=== PATIENT | male | born 1985 ===

== ENCOUNTER 2020-02-07 21:20 | Inpatient (IN) | payer OTHER ==
[2020-02-07 23:27] LABS: Anisocytosis Slight; Basophils # (A) 0.1 k/uL (0-0.2); Basophils % (A) 0 %; Eosinophils # (A) 0.2 k/uL (0-0.7); Eosinophils % (A) 1 %; HGB 11.7 gm/dL (13.0-17.5); Hypochromasia Slight; Lymphocytes # (A) 1.1 k/uL (1.0-4.8); Lymphocytes % (A) 7 %; MCH 37.7 pg (25.0-35.0); MCHC 33.5 g/dL (31.0-37.0); MCV 112.8 fL (80.0-100.0); Macrocytosis Marked; Mean Platelet Volume 8.8; Monocytes # (A) 0.7 k/uL (0-1.0); Monocytes % (A) 5 %; Neutrophils # (A) 14.3 k/uL (1.3-7.7); Neutrophils % (A) 86 %; Platelet Count 160 k/uL (150-450); RDW 17.8 % (11.5-15.5); WBC 16.5 k/uL (3.8-10.6)
[2020-02-07 23:38] LABS: ALT 112 U/L (4-49); AST 168 U/L (17-59); African American GFR (CKD) >90 (>60 ml/min/1.73 sqM); Alkaline Phosphatase 160 U/L (38-126); Amylase 84 U/L (30-110); Anion Gap 8 mmol/L; Blood Urea Nitrogen 16 mg/dL (9-20); Calcium 8.1 mg/dL (8.4-10.2); Carbon Dioxide 17 mmol/L (22-30); Chloride 104 mmol/L (98-107); Glucose 111 mg/dL (74-99); Magnesium 1.9 mg/dL (1.6-2.3); Non-African American GFR(CKD) >90 (>60 ml/min/1.73 sqM); Potassium 4.6 mmol/L (3.5-5.1); Sodium 129 mmol/L (137-145)
--- NOTE | 2020-02-08 00:03 | XR ---
EXAMINATION TYPE: XR chest 2V DATE OF EXAM: 02/07/2020 COMPARISON: NONE HISTORY: Swollen ankles TECHNIQUE: 2 views FINDINGS: Heart and mediastinum are normal. Lungs are clear of infiltrate. There is poor inspiration. Costophrenic angles are clear. There is no heart failure. Bony thorax is intact. IMPRESSION: Poor inspiration. No acute lung disease. No heart failure.
[2020-02-08 00:04] LABS: Total Bilirubin 27.3 mg/dL (0.2-1.3)
[2020-02-08 00:14] LABS: Target Cells Present
[2020-02-08 00:31] LABS: Appearance,Urine Clear (Clear); Color,Urine Dark Orange; Specific Gravity,Urine 1.005 (1.001-1.035)
[2020-02-08 00:32] LABS: Bilirubin,Urine 4+ (Negative); Blood,Urine Small (Negative); Glucose,Urine (UA) Negative (Negative); Ketones,Urine Negative (Negative); Protein,Urine Negative (Negative)
[2020-02-08 00:33] LABS: Leukocyte Esterase,Urine Negative (Negative); Nitrite,Urine Negative (Negative)
--- NOTE | 2020-02-08 00:35 | ED ---
General Adult HPI - General Chief complaint: Recheck/Abnormal Lab/Rx Stated complaint: Skin Issue Time Seen by Provider: 02/07/20 22:26 Source: patient, RN notes reviewed Mode of arrival: ambulatory Limitations: no limitations - History of Present Illness Initial comments: 34-year-old male with a past medical history of chronic alcoholism, alcoholic hepatitis presents to the emergency department for a chief complaint of jaundice. Patient has had jaundice for a few weeks now. Patient was apparently previously seen at [facility] for acute alcoholic hepatitis. He was released about one week ago. States she has not noticed any difference in this color change however has become more edematous in his legs. Unfortunately I was not able to receive reports from [facility] at this time despite several attempts. Patient went into [place] yesterday and has not had alcohol for 20 days.Patient has no other complaints at this time including shortness of breath, chest pain, abdominal pain, nausea or vomiting, headache, or visual changes. - Related Data Allergies Allergy/AdvReac Type Severity Reaction Status Date / Time No Known Allergies Allergy Verified 02/07/20 21:58 Review of Systems ROS Statement: Those systems with pertinent positive or pertinent negative responses have been documented in the HPI. ROS Other: All systems not noted in ROS Statement are negative. Past Medical History Past Medical History: No Reported History History of Any Multi-Drug Resistant Organisms: None Reported Past Surgical History: No Surgical Hx Reported Past Psychological History: No Psychological Hx Reported Smoking Status: Current every day smoker Past Alcohol Use History: Abuse, Daily, Heavy Past Drug Use History: None Reported General Exam Limitations: no limitations General appearance: alert, in no apparent distress Head exam: Present: atraumatic, normocephalic, normal inspection Eye exam: Present: normal appearance, PERRL, EOMI. Absent: scleral icterus, conjunctival injection, periorbital swelling ENT exam: Present: normal exam, mucous membranes moist Neck exam: Present: normal inspection, full ROM. Absent: tenderness, meningismus, lymphadenopathy Respiratory exam: Present: normal lung sounds bilaterally. Absent: respiratory distress, wheezes, rales, rhonchi, stridor Cardiovascular Exam: Present: regular rate, normal rhythm, normal heart sounds. Absent: systolic murmur, diastolic murmur, rubs, gallop, clicks GI/Abdominal exam: Present: soft, normal bowel sounds. Absent: distended, tenderness, guarding, rebound, rigid Course Vital Signs 02/07/20 21:56 Temperature 99.1 F Pulse Rate 89 Respiratory 18 Rate Blood Pressure 128/80 O2 Sat by Pulse 94 L Oximetry EKG Findings - EKG Comments: EKG Findings:: EKG shows a normal sinus rhythm, ventricular rate 82, SD interval 174, QTC 493 Medical Decision Making - Medical Decision Making Vitals are stable. Patient is noted to be markedly jaundiced with pitting edema in bilateral lower extremities. CBC does show mild anemia of 11.7 leukocytosis of 16 is noted. Likely reactive. Total bilirubin 27.3. INR is elevated to 2.5. Patient is mildly hyponatremic at the sodium of 129. Chest x-ray shows no acute heart failure, BNP is 200. Magnesium 1.9.case was discussed with . Patient will be admitted with GI consultation. We did attempt to get records tonight from [facility] but medical records was closed for the evening. - Lab Data Result diagrams: 02/07/20 23:13 02/07/20 23:13 Lab Results 02/07/20 02/07/20 02/07/20 Range/Units 23:13 23:13 23:13 WBC 16.5 H (3.8-10.6) k/uL RBC 3.10 L (4.30-5.90) m/uL Hgb 11.7 L (13.0-17.5) gm/dL Hct 35.0 L (39.0-53.0) % MCV 112.8 H (80.0-100.0) fL MCH 37.7 H (25.0-35.0) pg MCHC 33.5 (31.0-37.0) g/dL RDW 17.8 H (11.5-15.5) % Plt Count 160 (150-450) k/uL Neutrophils % 86 % Lymphocytes % 7 % Monocytes % 5 % Eosinophils % 1 % Basophils % 0 % Neutrophils # 14.3 H (1.3-7.7) k/uL Lymphocytes # 1.1 (1.0-4.8) k/uL Monocytes # 0.7 (0-1.0) k/uL Eosinophils # 0.2 (0-0.7) k/uL Basophils # 0.1 (0-0.2) k/uL Manual Slide Review Performed Hypochromasia Slight Anisocytosis Slight Macrocytosis Marked A Target Cells Present PT 24.0 H (9.0-12.0) sec INR 2.5 H (<1.2) Sodium (137-145) mmol/L Potassium (3.5-5.1) mmol/L Chloride (98-107) mmol/L Carbon Dioxide (22-30) mmol/L Anion Gap mmol/L BUN (9-20) mg/dL Creatinine (0.66-1.25) mg/dL Est GFR (CKD-EPI)AfAm (>60 ml/min/1.73 sqM) Est GFR (CKD-EPI)NonAf (>60 ml/min/1.73 sqM) Glucose (74-99) mg/dL Calcium (8.4-10.2) mg/dL Magnesium (1.6-2.3) mg/dL Total Bilirubin (0.2-1.3) mg/dL AST (17-59) U/L ALT (4-49) U/L Alkaline Phosphatase (38-126) U/L Troponin I (0.000-0.034) ng/mL NT-Pro-B Natriuret Pep pg/mL Total Protein (6.3-8.2) g/dL Albumin (3.5-5.0) g/dL Amylase (30-110) U/L Lipase (23-300) U/L Urine Color Dark [place] Urine Appearance Clear (Clear) Urine pH 6.0 (5.0-8.0) Ur Specific [place] 1.005 (1.001-1.035) Urine Protein Negative (Negative) Urine Glucose (UA) Negative (Negative) Urine Ketones Negative (Negative) Urine Blood Small (Negative) Urine Nitrite Negative (Negative) Urine Bilirubin 4+ H (Negative) Urine Urobilinogen 8.0 (<2.0) mg/dL Ur Leukocyte Esterase Negative (Negative) 02/07/20 02/07/20 02/07/20 Range/Units 23:13 23:13 23:13 WBC (3.8-10.6) k/uL RBC (4.30-5.90) m/uL Hgb (13.0-17.5) gm/dL Hct (39.0-53.0) % MCV (80.0-100.0) fL MCH (25.0-35.0) pg MCHC (31.0-37.0) g/dL RDW (11.5-15.5) % Plt Count (150-450) k/uL Neutrophils % % Lymphocytes % % Monocytes % % Eosinophils % % Basophils % % Neutrophils # (1.3-7.7) k/uL Lymphocytes # (1.0-4.8) k/uL Monocytes # (0-1.0) k/uL Eosinophils # (0-0.7) k/uL Basophils # (0-0.2) k/uL Manual Slide Review Hypochromasia Anisocytosis Macrocytosis Target Cells PT (9.0-12.0) sec INR (<1.2) Sodium 129 L (137-145) mmol/L Potassium 4.6 (3.5-5.1) mmol/L Chloride 104 (98-107) mmol/L Carbon Dioxide 17 L (22-30) mmol/L Anion Gap 8 mmol/L BUN 16 (9-20) mg/dL Creatinine 1.03 (0.66-1.25) mg/dL Est GFR (CKD-EPI)AfAm >90 (>60 ml/min/1.73 sqM) Est GFR (CKD-EPI)NonAf >90 (>60 ml/min/1.73 sqM) Glucose 111 H (74-99) mg/dL Calcium 8.1 L (8.4-10.2) mg/dL Magnesium 1.9 (1.6-2.3) mg/dL Total Bilirubin 27.3 H* (0.2-1.3) mg/dL AST 168 H (17-59) U/L ALT 112 H (4-49) U/L Alkaline Phosphatase 160 H (38-126) U/L Troponin I <0.012 (0.000-0.034) ng/mL NT-Pro-B Natriuret Pep 201 pg/mL Total Protein 7.0 (6.3-8.2) g/dL Albumin 3.0 L (3.5-5.0) g/dL Amylase 84 (30-110) U/L Lipase 675 H (23-300) U/L Urine Color Urine Appearance (Clear) Urine pH (5.0-8.0) Ur Specific [place] (1.001-1.035) Urine Protein (Negative) Urine Glucose (UA) (Negative) Urine Ketones (Negative) Urine Blood (Negative) Urine Nitrite (Negative) Urine Bilirubin (Negative) Urine Urobilinogen (<2.0) mg/dL Ur Leukocyte Esterase (Negative) Disposition Clinical Impression: Hyperbilirubinemia, Acute alcoholic hepatitis Disposition: ADMITTED IP TO THIS HOSP Is patient prescribed a controlled substance at d/c from ED?: No Referrals: None,Stated [Primary Care Provider] - 1-2 days Time of Disposition: 00:56
[2020-02-08 00:36] LABS: INR 2.5 (<1.2)
[2020-02-08] MEDS ORDERED: NALOXONE 0.4 MG/ML 1 ML VIAL IV PRN (00:52)
[2020-02-08] MEDS: SODIUM CHLORIDE 0.9% 1,000 ML IV SCH (02:17)
--- NOTE | 2020-02-08 03:24 | P.HPIM ---
History of Present Illness H&P Date: 02/08/20 Patient is a 34-year-old male with a PMH of EtOH abuse and alcoholic hepatitis who was sent to the ED from [place] due to jaundice. The patient reports that he initially developed his jaundice at the end of December where he had presented at [facility] in [place]. The patient was admitted to the hospital and was subsequently discharged a few days later. The patient reports being sober since then and had admitted himself to [place] on 02/05. He was evaluated by a nurse at [place] today who advised him to go to the emergency room for further evaluation of his jaundice. The patient's only complaint is bilateral lower extremity swelling which has gradually worsened since his initial admission at [facility]. He otherwise had no additional complaints. He reports drinking a fifth of hard liquor the past several years, and had been drinking heavily since he was 18 years old. He denied chest pain, shortness of breath, nausea, vomiting, abdominal pain, or diarrhea. Denied fever, chills, or cough. Chest x-ray was unremarkable with EKG showing a normal sinus rhythm at 82 bpm with a prolonged QTc at 493. Laboratory evaluation revealed a total bilirubin of 27.3, INR 2.5, AST 168, ALT 112, lipase 675, troponin less than 0.012, WBC 16.5, and hemoglobin 11.7. Review of Systems Pertinent positives and negatives as discussed in HPI, a complete review of systems was performed and all other systems are negative. Past Medical History Past Medical History: No Reported History History of Any Multi-Drug Resistant Organisms: None Reported Past Surgical History: No Surgical Hx Reported Past Psychological History: No Psychological Hx Reported Smoking Status: Current every day smoker Past Alcohol Use History: Abuse, Daily, Heavy Past Drug Use History: None Reported Medications and Allergies Allergies Allergy/AdvReac Type Severity Reaction Status Date / Time No Known Allergies Allergy Verified 02/07/20 21:58 Physical Exam Vitals: Vital Signs Temp Pulse Resp BP Pulse Ox 02/08/20 02:22 78 16 125/80 97 02/07/20 21:56 99.1 F 89 18 128/80 94 L Intake and Output 02/07/20 02/07/20 02/08/20 14:59 22:59 06:59 Other: Weight 114.305 kg General: Jaundiced male, no distress, appears at stated age, obese Derm: no unusual rashes/lesions no unusual ecchymoses, warm, dry Head: atraumatic, normocephalic, symmetric Eyes: EOMI, no lid lag, scleral icterus present, pupils equal round reactive to light ENT: Nose and ears atraumatic, no thrush, no pharyngeal erythema Neck: No thyromegaly, no cervical lymphadenopathy, trachea midline, supple Mouth: no lip lesion, mucus membranes moist Cardiovascular: S1S2 reg, no murmur, positive posterior tibial pulse bilateral, 3+ bilateral lower extremity pitting edema to knees, capillary refill less than 2 seconds Lungs: CTA bilateral, no rhonchi, no rales , no accessory muscle use Abdominal: soft, nontender to palpation, no guarding, no appreciable organo megaly, normal bowel sounds, asterixis absent Ext: no gross muscle atrophy, muscle strength 5 out of 5 in all 4 extremities grossly, no contractures, Neuro: CN II-XI grossly intact, light touch intact all 4 extremities, finger to nose within normal limits, Psych: Alert, oriented, appropriate affect Results CBC & Chem 7: 02/07/20 23:13 02/07/20 23:13 Labs: Abnormal Lab Results - Last 24 Hours (Table) 02/07/20 02/07/20 02/07/20 Range/Units 23:13 23:13 23:13 WBC 16.5 H (3.8-10.6) k/uL RBC 3.10 L (4.30-5.90) m/uL Hgb 11.7 L (13.0-17.5) gm/dL Hct 35.0 L (39.0-53.0) % MCV 112.8 H (80.0-100.0) fL MCH 37.7 H (25.0-35.0) pg RDW 17.8 H (11.5-15.5) % Neutrophils # 14.3 H (1.3-7.7) k/uL Macrocytosis Marked A PT 24.0 H (9.0-12.0) sec INR 2.5 H (<1.2) Sodium (137-145) mmol/L Carbon Dioxide (22-30) mmol/L Glucose (74-99) mg/dL Calcium (8.4-10.2) mg/dL Total Bilirubin (0.2-1.3) mg/dL AST (17-59) U/L ALT (4-49) U/L Alkaline Phosphatase (38-126) U/L Albumin (3.5-5.0) g/dL Lipase (23-300) U/L Urine Bilirubin 4+ H (Negative) 02/07/20 Range/Units 23:13 WBC (3.8-10.6) k/uL RBC (4.30-5.90) m/uL Hgb (13.0-17.5) gm/dL Hct (39.0-53.0) % MCV (80.0-100.0) fL MCH (25.0-35.0) pg RDW (11.5-15.5) % Neutrophils # (1.3-7.7) k/uL Macrocytosis PT (9.0-12.0) sec INR (<1.2) Sodium 129 L (137-145) mmol/L Carbon Dioxide 17 L (22-30) mmol/L Glucose 111 H (74-99) mg/dL Calcium 8.1 L (8.4-10.2) mg/dL Total Bilirubin 27.3 H* (0.2-1.3) mg/dL AST 168 H (17-59) U/L ALT 112 H (4-49) U/L Alkaline Phosphatase 160 H (38-126) U/L Albumin 3.0 L (3.5-5.0) g/dL Lipase 675 H (23-300) U/L Urine Bilirubin (Negative) Assessment and Plan Plan: Acute severe alcoholic hepatitis with chronic alcoholic liver disease -Advised on the importance of alcohol cessation -GI consult -Start prednisone 40 mg daily -Monitor CMP -Obtain records from [facility] Bilateral lower extremity pitting edema, likely due to fluid overload in setting of liver disease -Hold off on Lasix for now in setting of acute alcoholic hepatitis -Elevate legs Coagulopathy, likely due to liver failure -Monitor for now Leukocytosis, no signs of active infection at this time -Likely due to acute stress -Monitor for now DVT prophylaxis -IPCD The patient is admitted with an anticipated greater than 2 midnight stay for evaluation of alcoholic hepatitis CODE STATUS: Full Code Discussed with: Patient Anticipated discharge date: 2-[address]: Home A total of 40 minutes was spent on the care of this complex patient more than 50% of the time was spent in counseling and care coordination.
[2020-02-08 08:11] LABS: Anisocytosis Slight; HCT 32.4 % (39.0-53.0); HGB 10.7 gm/dL (13.0-17.5); Hypochromasia Slight; MCH 37.5 pg (25.0-35.0); MCHC 33.1 g/dL (31.0-37.0); MCV 113.2 fL (80.0-100.0); Macrocytosis Marked; Mean Platelet Volume 8.7; Platelet Count 153 k/uL (150-450); RBC 2.86 m/uL (4.30-5.90); RDW 17.7 % (11.5-15.5); WBC 14.6 k/uL (3.8-10.6)
[2020-02-08 08:23] LABS: ALT 107 U/L (4-49); AST 141 U/L (17-59); African American GFR (CKD) >90 (>60 ml/min/1.73 sqM); Albumin 2.5 g/dL (3.5-5.0); Alkaline Phosphatase 159 U/L (38-126); Anion Gap 4 mmol/L; Blood Urea Nitrogen 14 mg/dL (9-20); Calcium 8.1 mg/dL (8.4-10.2); Carbon Dioxide 21 mmol/L (22-30); Chloride 107 mmol/L (98-107); Glucose 79 mg/dL (74-99); Non-African American GFR(CKD) >90 (>60 ml/min/1.73 sqM); Potassium 3.5 mmol/L (3.5-5.1); Sodium 132 mmol/L (137-145); Total Protein 6.1 g/dL (6.3-8.2)
[2020-02-08 08:39] LABS: Total Bilirubin 27.2 mg/dL (0.2-1.3)
[2020-02-08] MEDS: THIAMINE 100 MG TAB PO SCH (09:03)
[2020-02-08] MEDS: predniSONE 20 MG TAB PO SCH (09:03)
[2020-02-08] MEDS: MULTIVITAMINS, THERA 1 EACH TAB PO SCH (09:03)
[2020-02-08] MEDS ORDERED: LORazepam 2 MG/ML INJ IV PRN ×3 (09:39)
[2020-02-08] MEDS: SPIRONOLACTONE 25 MG TAB PO SCH (11:46)
[2020-02-08] MEDS: busPIRone HCl 10 MG TAB PO SCH (11:46)
[2020-02-08] MEDS ORDERED: PHYTONADIONE 10 MG in SODIUM CHLORIDE 0.9% 50 ML IVPB STA (13:32)
--- NOTE | 2020-02-08 14:01 | US ---
EXAMINATION TYPE: US liver DATE OF EXAM: 02/08/2020 COMPARISON: none CLINICAL HISTORY: hepatitis, possible gallbladder disease. Patient stated has acute alcoholic hepatit is, jaundice, RUQ pain x years which radiates to back after meals EXAM MEASUREMENTS: Liver Length: 18.9 cm Gallbladder Wall: 0.5 cm CBD: 0.6 cm Right Kidney: 10.8 x 5.4 x 4.8 cm Pancreas: hypoechoic, heterogeneous appearance Liver: enlarged, no masses seen; veronique hepatis not well seen Gallbladder: nonmobile, shadowing calcification is seen in neck with sludge near neck and mid especi ally in LLD position, gallbladder wall is thickened. Evidence for sonographic Molina's sign: no CBD: Upper limits of normal Right Kidney: No hydronephrosis or masses seen Ascites is noted in all 4 abdominal quadrants with largest fluid pocket RLQ = 9.3cm A/P transverse. Visualized pancreas is heterogeneously hypoechoic in appearance without mass or ductal dilatation. Po rtions not well seen secondary to shadowing from overlying bowel gas. Visualized liver is enlarged an d heterogeneously hyperechoic in appearance with some surrounding ascites extending more prominent in the right lower quadrant. Gallbladder is poorly distended with mild wall thickening up to 5 mm but n o intraluminal shadowing mobile gallstones. There is 12 mm shadowing calculus towards the gallbladder neck felt present that cannot be documented mobile. Common bile duct measures upper limits of normal . All 4 quadrants show additional small to moderate fluid in the left lower quadrant IMPRESSION: Hepatomegaly and underlying hepatocellular disease with small to moderate amount of diffu se abdominal ascites greatest in the right greater than left lower quadrant. Nonmobile gallstone in g allbladder neck. No obvious biliary dilatation. Consider contrast-enhanced CT correlation.
--- NOTE | 2020-02-08 14:15 | P.PN ---
Progress Note - Text Progress Note Date: 02/08/20 Hospitalist Interval Note Patient seen and examined at bedside. He complains of worsening lower extremity edema, jaundice, no nausea or vomiting. He states he has not had anything to drink in the last 3 weeks. Vital signs reviewed General: non toxic, no distress, appears at stated age Derm: Janudice, multiple tattoos, warm, dry Head: atraumatic, normocephalic, symmetric Eyes: EOMI, no lid lag, +icteric sclera Mouth: no lip lesion, mucus membranes moist Cardiovascular: S1S2 reg, no murmur, positive posterior tibial pulse bilateral, Lungs: + rhonchi b/l bases, no rales , no accessory muscle use Abdominal: soft, nontender to palpation, no guarding, no appreciable organomegaly, + distended Ext: no gross muscle atrophy, 2+ edema, no contractures Neuro: CN II-XI grossly intact, no focal neuro deficits Psych: Alert, oriented, appropriate affect Assessment/Plan: Acute alcoholic hepatitis suspected decompensated cirrhosis -Records reviewed from [facility]. At that point in time he underwent ultrasound of the liver which slowed hepatitis, MRCP which is rather unremarkable, acute hepatitis panel was negative. He was on methylprednisolone and then prednisone which has been slowly weaned. Patient has been following up with GI out of [place]. He states he did not tell him about any significant cirrhosis -Start Lasix and Aldactone secondary to fluid overload with suspected ascites -Stat liver ultrasound ordered which confirmed ascites, multiple gallstones within the gallbladder and does not -Await GI recommendations -Continue with prednisone 40 mg daily -STAT ammonia level ordered This is an update note for patient , for full note on 02/08/2020 see H and P. There is no charge associated with this note.
[2020-02-08 19:37] LABS: Hepatitis A Antibody IgM Non-Reactive (Non-Reactive); Hepatitis B Core IgM Non-Reactive (Non-Reactive); Hepatitis B Surface Antigen Non-Reactive (Non-Reactive); Hepatitis C IgG Antibody Non-Reactive (Non-Reactive)
[2020-02-08] MEDS: FUROSEMIDE 10 MG/ML 4 ML VIAL IV SCH (20:38)
--- NOTE | 2020-02-08 21:30 | P.CONS ---
History of Present Illness - Reason for Consult Consult date: 02/08/20 Acute alcoholic hepatitis Requesting physician: Lorraine Berg - Chief Complaint Jaundice - History of Present Illness 34-year-old male with a medical history significant for alcohol abuse and hospitalization for acute alcoholic hepatitis who was in the hospital for further evaluation of worsening jaundice. The patient was treated for acute alcoholic hepatitis in [facility] in [place]. He reports that previous to this he had been drinking approximately a gallon of vodka every 3 days. He said no alcohol since January 17. He denies any prior history of ascites or encephalopathy, he does report a previous EGD when he was told he had ulcers. No prior colonoscopy. Patient reports skin has been increasingly yellowing in that his urine has been dark [employer]a colored. On presentation to the hospital WBC 14.6, hemoglobin 10.7, platelet count 153,000, INR 2.5, acute viral hepatitis panel testing negative. The liver enzymes were significant for a total bilirubin 27.2, platelet count 159, AST 141 and ALT 107. He did have an MRCP at an outside facility for report which was essentially within normal limits. Ultrasound of the abdomen on current hospitalization shows hepatomegaly, hepatocellular disease, [id number] ascites with no ductal dilation. Review of Systems REVIEW OF SYSTEMS: CONSTITUTIONAL: Denies any fevers, chills, weight change or fatigue. CARDIOVASCULAR: Denies any chest pain, palpitations high or low blood pressures RESPIRATORY: Denies any shortness of breath, hemoptysis or cough. GENITOURINARY: No dysuria or hematuria, does report dark urine. MUSCULOSKELETAL: No weakness reported. SKIN: Denies any new rashes or lesions, jaundice or pallor. PSYCHIATRIC: Denies any depression or anxiety, history of alcohol abuse. NEUROLOGY: Denies headache, denies any new focal deficits. EARS/NOSE/THROAT: No recent hearing change, congestion, nasal discharge or sore throat. EYES: No pain in eyes, discharge or change in vision. GASTROINTESTINAL: As per HPI. Past Medical History Past Medical History: No Reported History Additional Past Medical History / Comment(s): Patient was on lisinopril but said physician told him to stop taking when BP normalized History of Any Multi-Drug Resistant Organisms: None Reported Past Surgical History: No Surgical Hx Reported Additional Past Surgical History / Comment(s): Said he had a "stomach scope" that showed ulcers and was treated Past Anesthesia/Blood Transfusion Reactions: No Reported Reaction Past Psychological History: No Psychological Hx Reported Smoking Status: Current every day smoker Past Alcohol Use History: Abuse, Daily, Heavy Past Drug Use History: None Reported - Past Family History Mother Family Medical History: Diabetes Mellitus Medications and Allergies Home Medications Medication Instructions Recorded Confirmed Type Acetaminophen [Tylenol Arthritis] 650 mg PO Q4H PRN 02/08/20 02/08/20 History Renato/Mag+Zinc 334mg/134mg/5mg 2 tab PO TID PRN 02/08/20 02/08/20 History Chlorpheniramine Maleate 4 mg PO Q4H PRN 02/08/20 02/08/20 History [Chlor-Trimeton] Citalopram Hydrobromide [CeleXA] 10 mg PO DAILY@0600 02/08/20 02/08/20 History Ibuprofen [Motrin] 600 mg PO Q6HR PRN 02/08/20 02/08/20 History Multivitamins, Thera [Multivitamin 1 tab PO DAILY 02/08/20 02/08/20 History (formulary)] Thiamine [Vitamin B-1] 100 mg PO DAILY 02/08/20 02/08/20 History busPIRone HCl [Buspar] 10 mg PO BID@0600,1630 02/08/20 02/08/20 History traZODone HCL 100 mg PO HS 02/08/20 02/08/20 History Allergies Allergy/AdvReac Type Severity Reaction Status Date / Time No Known Allergies Allergy Verified 02/08/20 08:42 Physical Exam Vitals: Vital Signs Temp Pulse Pulse Resp BP BP Pulse Ox 02/08/20 11:41 98.3 F 85 17 119/71 95 02/08/20 08:00 17 02/08/20 04:01 98.1 F 87 17 124/77 97 02/08/20 04:00 87 02/08/20 03:23 97.8 F 02/08/20 02:22 78 16 125/80 97 02/07/20 21:56 99.1 F 89 18 128/80 94 L Intake and Output 02/07/20 02/08/20 02/08/20 22:59 06:59 14:59 Intake Total 60 Balance 60 Intake: Intake, IV Titration 60 Amount Sodium Chloride 0.9% 1, 60 000 ml @ 20 mls/hr IV . Q24H [facility] Rx#:[id number] Other: Voiding Method Toilet Toilet # Voids 1 Weight 114.305 kg 119 kg On physical examination, patient appears comfortable in no apparent distress. HEAD: Normocephalic, atraumatic. EYES: Scleral icterus. No conjunctival injection. MOUTH: No lesions, tongue midline. NECK: Trachea midline, no gross abnormalities. CHEST: Clear to auscultation with no wheezing or rhonchi appreciated. HEART: Regular rate and rhythm. ABDOMEN: Soft, obese, mildly distended. Bowel sounds are positive. No organomegaly. No guarding or rigidity. EXTREMITIES: +1 pedal edema. SKIN: No rashes, jaundice. NEUROLOGIC: Alert and oriented x3, no asterixis noted. No focal deficits. Results CBC & Chem 7: 02/08/20 07:41 02/08/20 07:41 Labs: Abnormal Lab Results - Last 24 Hours (Table) 02/07/20 02/07/20 02/07/20 Range/Units 23:13 23:13 23:13 WBC 16.5 H (3.8-10.6) k/uL RBC 3.10 L (4.30-5.90) m/uL Hgb 11.7 L (13.0-17.5) gm/dL Hct 35.0 L (39.0-53.0) % MCV 112.8 H (80.0-100.0) fL MCH 37.7 H (25.0-35.0) pg RDW 17.8 H (11.5-15.5) % Neutrophils # 14.3 H (1.3-7.7) k/uL Macrocytosis Marked A PT 24.0 H (9.0-12.0) sec INR 2.5 H (<1.2) Sodium (137-145) mmol/L Carbon Dioxide (22-30) mmol/L Glucose (74-99) mg/dL Calcium (8.4-10.2) mg/dL Total Bilirubin (0.2-1.3) mg/dL AST (17-59) U/L ALT (4-49) U/L Alkaline Phosphatase (38-126) U/L Ammonia (<30) umol/L Total Protein (6.3-8.2) g/dL Albumin (3.5-5.0) g/dL Lipase (23-300) U/L Urine Bilirubin 4+ H (Negative) 02/07/20 02/08/20 02/08/20 Range/Units 23:13 07:41 07:41 WBC 14.6 H (3.8-10.6) k/uL RBC 2.86 L (4.30-5.90) m/uL Hgb 10.7 L (13.0-17.5) gm/dL Hct 32.4 L (39.0-53.0) % MCV 113.2 H (80.0-100.0) fL MCH 37.5 H (25.0-35.0) pg RDW 17.7 H (11.5-15.5) % Neutrophils # (1.3-7.7) k/uL Macrocytosis Marked A PT (9.0-12.0) sec INR (<1.2) Sodium 129 L 132 L (137-145) mmol/L Carbon Dioxide 17 L 21 L (22-30) mmol/L Glucose 111 H (74-99) mg/dL Calcium 8.1 L 8.1 L (8.4-10.2) mg/dL Total Bilirubin 27.3 H* 27.2 H* (0.2-1.3) mg/dL AST 168 H 141 H (17-59) U/L ALT 112 H 107 H (4-49) U/L Alkaline Phosphatase 160 H 159 H (38-126) U/L Ammonia (<30) umol/L Total Protein 6.1 L (6.3-8.2) g/dL Albumin 3.0 L 2.5 L (3.5-5.0) g/dL Lipase 675 H (23-300) U/L Urine Bilirubin (Negative) 02/08/20 Range/Units 10:41 WBC (3.8-10.6) k/uL RBC (4.30-5.90) m/uL Hgb (13.0-17.5) gm/dL Hct (39.0-53.0) % MCV (80.0-100.0) fL MCH (25.0-35.0) pg RDW (11.5-15.5) % Neutrophils # (1.3-7.7) k/uL Macrocytosis PT (9.0-12.0) sec INR (<1.2) Sodium (137-145) mmol/L Carbon Dioxide (22-30) mmol/L Glucose (74-99) mg/dL Calcium (8.4-10.2) mg/dL Total Bilirubin (0.2-1.3) mg/dL AST (17-59) U/L ALT (4-49) U/L Alkaline Phosphatase (38-126) U/L Ammonia 56 H (<30) umol/L Total Protein (6.3-8.2) g/dL Albumin (3.5-5.0) g/dL Lipase (23-300) U/L Urine Bilirubin (Negative) US - abdomen: report reviewed (Ultrasound of the abdomen with findings of hepatocellular disease, hepatomegaly, mild ascites with no ductal dilation) Assessment and Plan (1) Acute alcoholic hepatitis Narrative/Plan: 34-year-old male with a known history of alcohol abuse and recent hospitalization in December in [place] for acute alcoholic hepatitis who presented for worsening jaundice. Patient denies any history of paracentesis or encephalopathy. Previous GI bleed secondary to peptic ulcer disease. No confusion or disorientation at this time. MRCP at an outside facility essentially negative per report. Ultrasound of the abdomen on current presentation significant for mild ascites, hepatocellular disease, hepatomegaly markedly elevated liver enzymes with total bilirubin 27.2, alkaline phosphatase 159, AST 141 and ALT 107 with INR of 2.5 (likely secondary to malabsorption of vitamin K in the setting of cholestasis and jaundice). Current Visit: Yes Status: Acute Code(s): K70.10 - ALCOHOLIC HEPATITIS WITHOUT ASCITES SNOMED Code(s): 2875893 (2) Hyperbilirubinemia Current Visit: Yes Status: Acute Code(s): E80.6 - OTHER DISORDERS OF BILIRUBIN METABOLISM SNOMED Code(s): 62626473 Plan: Supportive care Sodium restricted diet Aldactone and Lasix initiated with primary team Continue to monitor CBC, BMP, LFTs, INR Continue to monitor for any signs or symptoms of encephalopathy Vitamin K ordered Can consider paracentesis if there is enough ascites for the iron service to tap the patient Ammonia level pending Continue to treat symptomatically Thank you for allowing us to participate in the care of the patient
[2020-02-08] MEDS: traZODone HCL 100 MG TAB PO SCH (22:38)
[2020-02-09] MEDS: busPIRone HCl 10 MG TAB PO SCH ×2 (05:34→15:59)
[2020-02-09] MEDS: CITALOPRAM HYDROBROMIDE 10 MG TAB PO SCH (05:34)
[2020-02-09] MEDS: SODIUM CHLORIDE 0.9% 1,000 ML IV SCH ×2 (05:35→22:45)
[2020-02-09] MEDS: FUROSEMIDE 10 MG/ML 4 ML VIAL IV SCH ×2 (08:16→20:36)
[2020-02-09] MEDS: SPIRONOLACTONE 25 MG TAB PO SCH (08:17)
[2020-02-09] MEDS: predniSONE 20 MG TAB PO SCH (08:17)
[2020-02-09] MEDS: THIAMINE 100 MG TAB PO SCH (08:17)
[2020-02-09] MEDS: MULTIVITAMINS, THERA 1 EACH TAB PO SCH (08:17)
[2020-02-09 09:44] LABS: Anisocytosis Slight; HCT 39.8 % (39.0-53.0); HGB 12.9 gm/dL (13.0-17.5); Hypochromasia Slight; MCH 36.7 pg (25.0-35.0); MCHC 32.3 g/dL (31.0-37.0); MCV 113.5 fL (80.0-100.0); Macrocytosis Marked; Mean Platelet Volume 8.5; Platelet Count 218 k/uL (150-450); RDW 17.5 % (11.5-15.5)
[2020-02-09 10:02] LABS: Prothrombin Time 19.8 sec (9.0-12.0)
[2020-02-09 10:03] LABS: Albumin 3.1 g/dL (3.5-5.0); Calcium 8.7 mg/dL (8.4-10.2); Potassium 3.4 mmol/L (3.5-5.1)
[2020-02-09 10:12] LABS: Total Protein 7.4 g/dL (6.3-8.2)
[2020-02-09] MEDS ORDERED: PHYTONADIONE 10 MG in SODIUM CHLORIDE 0.9% 50 ML IVPB STA (11:20)
[2020-02-09] MEDS: POTASSIUM CHLORIDE ER 20 MEQ TAB.ER PO SCH ×2 (13:56→15:59)
--- NOTE | 2020-02-09 18:17 | P.PN ---
Subjective Progress Note Date: 02/09/20 patient is patient was seen and examined. No acute events overnight. Patient reports no current symptoms. He denies any chest pain, shortness breath or palpitations. No nausea or vomiting. No fever or chills. Objective - Vital Signs Vital signs: Vital Signs Temp 98.0 F 02/09/20 12:03 Pulse 66 02/09/20 12:03 Resp 16 02/09/20 12:03 BP 93/60 02/09/20 12:03 Pulse Ox 96 02/09/20 12:03 Intake & Output 02/08/20 02/09/20 02/09/20 18:59 06:59 18:59 Intake Total 560 60 480 Balance 560 60 480 Intake: Intake, IV Titration 160 60 Amount Sodium Chloride 0.9% 1, 160 60 000 ml @ 20 mls/hr IV . Q24H [facility] Rx#:[id number] Oral 400 480 Other: Voiding Method Toilet Toilet Toilet # Voids 3 3 2 # Bowel Movements 1 - Exam General: [non toxic], [no distress], [appears at stated age] Derm: [warm], [dry], jaundiced Head: [atraumatic], [normocephalic], [symmetric] Eyes: [EOMI], [no lid lag], [icteric sclera] Mouth: [no lip lesion], [mucus membranes moist] Cardiovascular: [S1S2 reg], [no murmur], [positive posterior tibial pulse bilateral], Lungs: [Decreased breath sounds bilateral], [no rhonchi, no rales] , [no accessory muscle use] Abdominal: [soft and distended], [ nontender to palpation], [no guarding], [no appreciable organomegaly] Ext: [no gross muscle atrophy], [2+ pitting lower extremity edema], [no contractures] Neuro: [no focal neuro deficits] Psych: [Alert], [oriented], [appropriate affect] - Labs CBC & Chem 7: 02/09/20 09:17 02/09/20 09:17 Labs: Abnormal Lab Results - Last 24 Hours (Table) 02/09/20 02/09/20 02/09/20 Range/Units 09:17 09: 09:17 WBC 20.0 H (3.8-10.6) k/uL RBC 3.50 L (4.30-5.90) m/uL Hgb 12.9 L (13.0-17.5) gm/dL MCV 113.5 H (80.0-100.0) fL MCH 36.7 H (25.0-35.0) pg RDW 17.5 H (11.5-15.5) % Macrocytosis Marked A PT 19.8 H (9.0-12.0) sec INR 2.0 H (<1.2) Sodium 131 L (137-145) mmol/L Potassium 3.4 L (3.5-5.1) mmol/L Carbon Dioxide 19 L (22-30) mmol/L BUN 21 H (9-20) mg/dL Creatinine 1.31 H (0.66-1.25) mg/dL Glucose 131 H (74-99) mg/dL Total Bilirubin 32.0 H* (0.2-1.3) mg/dL AST 149 H (17-59) U/L ALT 123 H (4-49) U/L Alkaline Phosphatase 206 H (38-126) U/L Ammonia (<30) umol/L Albumin 3.1 L (3.5-5.0) g/dL /16 Range/Units 09:17 WBC (3.8-10.6) k/uL RBC (4.30-5.90) m/uL Hgb (13.0-17.5) gm/dL MCV (80.0-100.0) fL MCH (25.0-35.0) pg RDW (11.5-15.5) % Macrocytosis PT (9.0-12.0) sec INR (<1.2) Sodium (137-145) mmol/L Potassium (3.5-5.1) mmol/L Carbon Dioxide (22-30) mmol/L BUN (9-20) mg/dL Creatinine (0.66-1.25) mg/dL Glucose (74-99) mg/dL Total Bilirubin (0.2-1.3) mg/dL AST (17-59) U/L ALT (4-49) U/L Alkaline Phosphatase (38-126) U/L Ammonia 66 H (<30) umol/L Albumin (3.5-5.0) g/dL Assessment and Plan Assessment: Acute severe alcoholic hepatitis with chronic alcoholic liver disease -Advised on the importance of alcohol cessation -Continue Aldactone -GI consult -Start prednisone 40 mg daily -Monitor CMP -Obtain records from [facility] Bilateral lower extremity pitting edema, likely due to fluid overload in setting of liver disease -Continue Lasix 40 mg IV twice a day -Elevate legs Coagulopathy, likely due to liver failure -Vitamin K IV today and yesterday -Daily INR Leukocytosis, no signs of active infection at this time -Likely due to acute stress -Monitor for now DVT prophylaxis -IPCD [Patient with decompensated cirrhosis. GI on board. He is pending clinical improvement. Likely DC in 1-2 days.]
[2020-02-09] MEDS: traZODone HCL 100 MG TAB PO SCH (22:08)
[2020-02-10] MEDS: busPIRone HCl 10 MG TAB PO SCH (05:25)
[2020-02-10] MEDS: CITALOPRAM HYDROBROMIDE 10 MG TAB PO SCH (05:25)
[2020-02-10 06:57] LABS: Anisocytosis Slight; HCT 34.6 % (39.0-53.0); HGB 11.3 gm/dL (13.0-17.5); Hypochromasia Slight; MCH 36.9 pg (25.0-35.0); MCHC 32.5 g/dL (31.0-37.0); MCV 113.4 fL (80.0-100.0); Mean Platelet Volume 8.4; Platelet Count 177 k/uL (150-450); RBC 3.06 m/uL (4.30-5.90); RDW 17.6 % (11.5-15.5); WBC 16.5 k/uL (3.8-10.6)
[2020-02-10 06:59] LABS: Macrocytosis Marked
[2020-02-10 07:07] LABS: ALT 106 U/L (4-49); AST 114 U/L (17-59); African American GFR (CKD) >90 (>60 ml/min/1.73 sqM); Albumin 2.4 g/dL (3.5-5.0); Alkaline Phosphatase 155 U/L (38-126); Anion Gap 8 mmol/L; Blood Urea Nitrogen 20 mg/dL (9-20); Calcium 8.1 mg/dL (8.4-10.2); Carbon Dioxide 22 mmol/L (22-30); Chloride 101 mmol/L (98-107); Glucose 75 mg/dL (74-99); Non-African American GFR(CKD) 83 (>60 ml/min/1.73 sqM); Potassium 3.3 mmol/L (3.5-5.1); Sodium 131 mmol/L (137-145)
[2020-02-10 07:21] LABS: Total Bilirubin 26.5 mg/dL (0.2-1.3)
--- NOTE | 2020-02-10 07:25 | P.PN ---
Subjective Progress Note Date: 02/09/20 Principal diagnosis: Alcoholic hepatitis, elevated liver enzymes Patient is seen lying in bed today with no acute complaints. He remains jaundiced and icteric. Denies any confusion or signs or symptoms of GI bleeding. Objective - Vital Signs Vital signs: Vital Signs Temp 97.7 F 02/09/20 04:55 Pulse 76 02/09/20 04:55 Resp 16 02/09/20 04:55 BP 108/69 02/09/20 04:55 Pulse Ox 94 L 02/09/20 04:55 Intake & Output 02/08/20 02/09/20 02/09/20 18:59 06:59 18:59 Intake Total 560 60 480 Balance 560 60 480 Intake: Intake, IV Titration 160 60 Amount Sodium Chloride 0.9% 1, 160 60 000 ml @ 20 mls/hr IV . Q24H [facility] Rx#:[id number] Oral 400 480 Other: Voiding Method Toilet Toilet Toilet # Voids 3 3 # Bowel Movements 1 - Exam On physical examination, patient appears comfortable in no apparent distress. HEAD: Normocephalic, atraumatic. EYES: Scleral icterus. No conjunctival injection. MOUTH: No lesions, tongue midline. NECK: Trachea midline, no gross abnormalities. ABDOMEN: Soft, obese, mildly distended. Bowel sounds are positive. No organomegaly. No guarding or rigidity. EXTREMITIES: +1 pedal edema. SKIN: No rashes, jaundice. NEUROLOGIC: Alert and oriented x3, no asterixis noted. No focal deficits. - Labs CBC & Chem 7: 02/10/20 06:20 02/10/20 06:20 Labs: Abnormal Lab Results - Last 24 Hours (Table) 02/09/20 02/09/20 02/09/20 Range/Units 09:17 09:17 09:17 WBC 20.0 H (3.8-10.6) k/uL RBC 3.50 L (4.30-5.90) m/uL Hgb 12.9 L (13.0-17.5) gm/dL MCV 113.5 H (80.0-100.0) fL MCH 36.7 H (25.0-35.0) pg RDW 17.5 H (11.5-15.5) % Macrocytosis Marked A PT 19.8 H (9.0-12.0) sec INR 2.0 H (<1.2) Sodium 131 L (137-145) mmol/L Potassium 3.4 L (3.5-5.1) mmol/L Carbon Dioxide 19 L (22-30) mmol/L BUN 21 H (9-20) mg/dL Creatinine 1.31 H (0.66-1.25) mg/dL Glucose 131 H (74-99) mg/dL Total Bilirubin 32.0 H* (0.2-1.3) mg/dL AST 149 H (17-59) U/L ALT 123 H (4-49) U/L Alkaline Phosphatase 206 H (38-126) U/L Ammonia (<30) umol/L Albumin 3.1 L (3.5-5.0) g/dL 02/09/20 Range/Units 09:17 WBC (3.8-10.6) k/uL RBC (4.30-5.90) m/uL Hgb (13.0-17.5) gm/dL MCV (80.0-100.0) fL MCH (25.0-35.0) pg RDW (11.5-15.5) % Macrocytosis PT (9.0-12.0) sec INR (<1.2) Sodium (137-145) mmol/L Potassium (3.5-5.1) mmol/L Carbon Dioxide (22-30) mmol/L BUN (9-20) mg/dL Creatinine (0.66-1.25) mg/dL Glucose (74-99) mg/dL Total Bilirubin (0.2-1.3) mg/dL AST (17-59) U/L ALT (4-49) U/L Alkaline Phosphatase (38-126) U/L Ammonia 66 H (<30) umol/L Albumin (3.5-5.0) g/dL Assessment and Plan (1) Acute alcoholic hepatitis Narrative/Plan: 34-year-old male with a known history of alcohol abuse and recent hospitaliza tion in December in [place] for acute alcoholic hepatitis who presented for worsening jaundice. Patient denies any history of paracentesis or encephalopathy. Previous GI bleed secondary to peptic ulcer disease. No confusion or disorientation at this time. MRCP at an outside facility essentially negative per report. Ultrasound of the abdomen on current presentation significant for mild ascites, hepatocellular disease, hepatomegaly markedly elevated liver enzymes with total bilirubin 27.2, alkaline phosphatase 159, AST 141 and ALT 107 with INR of 2.5 (likely secondary to malabsorption of vitamin K in the setting of cholestasis and jaundice) on presentation. Clinically no signs of encephalopathy or asterixis on physical exam. Ammonia was elevated. INR did improve down to 2.0 after being given vitamin K. Current Visit: Yes Status: Acute Code(s): K70.10 - ALCOHOLIC HEPATITIS WITHOUT ASCITES SNOMED Code(s): 6793022 (2) Hyperbilirubinemia Current Visit: Yes Status: Acute Code(s): E80.6 - OTHER DISORDERS OF BILIRUBIN METABOLISM SNOMED Code(s): 40844482 Plan: Supportive care Sodium restricted diet Aldactone and Lasix initiated Lactulose twice a day added for elevated ammonia, however clinically no asterixis noted on physical exam Continue to monitor CBC, BMP, LFTs, INR Continue to monitor for any signs or symptoms of encephalopathy Vitamin K ordered with INR improved down to 2.0, we'll order an additional dose Can consider paracentesis if there is enough ascites for the iron service to tap the patient Ammonia level elevated Continue to treat symptomatically Thank you for allowing us to participate in the care of the patient
[2020-02-10 08:36] LABS: Prothrombin Time 19.5 sec (9.0-12.0)
[2020-02-10] MEDS ORDERED: LACTULOSE 20 GM/30 ML CUP PO SCH (09:00)
[2020-02-10] MEDS: THIAMINE 100 MG TAB PO SCH (09:19)
[2020-02-10] MEDS: FUROSEMIDE 10 MG/ML 4 ML VIAL IV SCH (09:19)
[2020-02-10] MEDS: MULTIVITAMINS, THERA 1 EACH TAB PO SCH (09:20)
[2020-02-10] MEDS: predniSONE 20 MG TAB PO SCH (09:20)
[2020-02-10] MEDS: SPIRONOLACTONE 25 MG TAB PO SCH (09:20)
[2020-02-10] MEDS ORDERED: Potassium Replacement Protocol 1 EACH MISC MISCELLANE PRN (10:30)
[2020-02-10] MEDS ORDERED: POTASSIUM CHLORIDE ER 20 MEQ TAB.ER PO ONE (11:13)
[2020-02-10 11:34] LABS: Protein, Total 6.6 g/dL (6.2-8.2)
[2020-02-10 11:45] LABS: % Iron Saturation 53.19 (15.00-50.00); Ferritin 830.2 ng/mL (22.0-322.0)
[2020-02-10 11:51] LABS: Alpha Fetoprotein, Tumor Mkr 3.8 ng/mL (0.0-7.9)
[2020-02-10 12:16] VITALS: BP 114/69; PULSE 98; RESP 17; TEMP 98.1
--- NOTE | 2020-02-10 12:20 | P.DS ---
Providers Date of admission: 02/08/20 00:52 Expected date of discharge: 02/10/20 Attending physician: Lorraine Berg MD Consults: 02/08/20 00:53 Consult Physician Routine Consulting Provider: Doris Silver Consult Reason/Comments: acute alcoholic hepatitis, hyperbilirubinemia Do you want consulting provider notified?: Yes Primary care physician: Stated None Hospital Course: Patient is a 34-year-old male with a PMH of EtOH abuse and alcoholic hepatitis who was sent to the ED from [facility] due to jaundice. The patient reports that he initially developed his jaundice at the end of December where he had presented at [facility] in [place]. The patient was admitted to the hospital and was subsequently discharged a few days later. The patient reports being sober since then and had admitted himself to [facility] on 02/05. He was evaluated by a nurse at [facility] today who advised him to go to the emergency room for further evaluation of his jaundice. The patient's only complaint is bilateral lower extremity swelling which has gradually worsened since his initial admission at [facility]. He otherwise had no additional complaints. He reports drinking a fifth of hard liquor the past several years, and had been drinking heavily since he was 18 years old. He denied chest pain, shortness of breath, nausea, vomiting, abdominal pain, or diarrhea. Denied fev er, chills, or cough. Chest x-ray was unremarkable with EKG showing a normal sinus rhythm at 82 bpm with a prolonged QTc at 493. Laboratory evaluation revealed a total bilirubin of 27.3, INR 2.5, AST 168, ALT 112, lipase 675, troponin less than 0.012, WBC 16.5, and hemoglobin 11.7. Liver ultrasound showed hepatomegaly and hepatocellular disease with small to moderate amount of abdominal ascites without biliary dilation. Patient was started on Lasix 40 mg IV twice a day. He was started on lactulose for elevated ammonia of 66 asymptomatic by GI. He was started on Aldactone. He was given v itamin K IV by GI. He was noted to have a leukocytosis thought to be related to prednisone use while inpatient. Alpha-fetoprotein was negative. His potassium was replaced while inpatient. MAURISIO was negative. Hepatitis panel was negative. Patient was seen and examined. No acute events overnight. Patient reports slight improvement in his lower extremity swelling. He denies any chest pain, shortness breath or palpitations. No nausea or vomiting. No fever or chills. General: [non toxic], [no distress], [appears at stated age] Derm: [warm], [dry], jaundiced Head: [atraumatic], [normocephalic], [symmetric] Eyes: [EOMI], [no lid lag], [icteric sclera] Mouth: [no lip lesion], [mucus membranes moist] Cardiovascular: [S1S2 reg], [no murmur], [positive posterior tibial pulse bilateral], Lungs: [Decreased breath sounds bilateral], [no rhonchi, no rales] , [no accessory muscle use] Abdominal: [soft and distended], [ nontender to palpation], [no guarding], [no appreciable organomegaly] Ext: [no gross muscle atrophy], [2+ pitting lower extremity edema], [no contractures] Neuro: [no focal neuro deficits] Psych: [Alert], [oriented], [appropriate affect] Acute severe alcoholic hepatitis with chronic alcoholic liver disease -Advised on the importance of alcohol cessation -MAURISIO negative, alpha-fetoprotein within normal limits -Continue Aldactone, lactulose, Lasix -GI consult -Complete total 5 days of prednisone Hyperammonemia -Mental status intact -Start and continue lactulose 20 mg by mouth twice a day Hypokalemia -Replace via protocol and repeat in the outpatient setting Bilateral lower extremity pitting edema, likely due to fluid overload in setting of liver disease -Transition from IV to Lasix by mouth -Elevate legs Coagulopathy, likely due to liver failure -Vitamin K IV yesterday -Daily INR Leukocytosis, no signs of active infection at this time -Likely due to acute stress and prednisone use -Monitor for now DVT prophylaxis -IPCD [Patient with decompensated cirrhosis. GI on board. Anticipate DC back to [facility]. Likely DC today or tomorrow depending on GI recommendations. This complex discharge took about 35 minutes to complete.] Pertinent Studies: Chest x-ray, liver ultrasound Patient Condition at Discharge: Stable Plan - Discharge Summary New Discharge Prescriptions: New Spironolactone [Aldactone] 25 mg PO DAILY #30 tab Lactulose [Cephulac] 20 gm PO BID #1800 ml predniSONE [Deltasone] 40 mg PO DAILY #4 tab Furosemide [Lasix] 40 mg PO BID #60 tablet Continue Renato/Mag+Zinc 334mg/134mg/5mg 2 tab PO TID PRN PRN Reason: busPIRone HCl [Buspar] 10 mg PO BID@0600,1630 Thiamine [Vitamin B-1] 100 mg PO DAILY Multivitamins, Thera [Multivitamin (formulary)] 1 tab PO DAILY Citalopram Hydrobromide [CeleXA] 10 mg PO DAILY@0600 traZODone HCL 100 mg PO HS Discontinued Chlorpheniramine Maleate [Chlor-Trimeton] 4 mg PO Q4H PRN PRN Reason: Allergy Symptoms Ibuprofen [Motrin] 600 mg PO Q6HR PRN PRN Reason: Pain Acetaminophen [Tylenol Arthritis] 650 mg PO Q4H PRN PRN Reason: Fever And/ Or Pain Discharge Medication List Renato/Mag+Zinc 334mg/134mg/5mg 2 tab PO TID PRN 02/08/20 [History] Citalopram Hydrobromide [CeleXA] 10 mg PO DAILY@0600 02/08/20 [History] Multivitamins, Thera [Multivitamin (formulary)] 1 tab PO DAILY 02/08/20 [History] Thiamine [Vitamin B-1] 100 mg PO DAILY 02/08/20 [History] busPIRone HCl [Buspar] 10 mg PO BID@0600,1630 02/08/20 [History] traZODone HCL 100 mg PO HS 02/08/20 [History] Furosemide [Lasix] 40 mg PO BID #60 tablet 02/10/20 [Rx] Lactulose [Cephulac] 20 gm PO BID #1800 ml 02/10/20 [Rx] Spironolactone [Aldactone] 25 mg PO DAILY #30 tab 02/10/20 [Rx] predniSONE [Deltasone] 40 mg PO DAILY #4 tab 02/10/20 [Rx] Follow up Appointment(s)/Referral(s): None,Stated [Primary Care Provider] - 1-2 days Sheng Zeng MD [STAFF PHYSICIAN] - 02/18/20 10:30 am () Ambulatory/Diagnostic Orders: Comprehensive Metabolic Panel [LAB.AMB] Time Frame: 3 Days, Location: None Selected Activity/Diet/Wound Care/Special Instructions: Low-salt diet Follow-up PCP within 2 days of discharge. Follow-up with GI within 1 week of discharge. Repeat CMP within 3 days. Results to be followed up with PCP. Take all medications as advised. Come back to the ED or call 911 for worsening abdominal distention, intractable nausea or vomiting, fever greater than 100.4 Fahrenheit, chest pain, shortness of breath or palpitations. Discharge Disposition: HOME SELF-CARE
[2020-02-10 13:09] LABS: Albumin 3.32 g/dL (3.80-4.90); Gamma Globulin 1.51 g/dL (0.70-1.50)
[2020-02-10 14:47] LABS: Liver/Kidney Microsome Antibod 2.1 UNITS (<=20)
--- NOTE | 2020-02-10 20:29 | PN ---
PROGRESS NOTE DATE OF DICTATION: 02/10/2020 This patient is a 34-year-old pleasant male with history of heavy alcohol abuse, admitted to the hospital with acute alcoholic hepatitis. He denies any complaints. He reports no abdominal pain. No nausea or vomiting. He continues to remain severely jaundiced. PHYSICAL EXAMINATION: He appears comfortable. No apparent distress. Vital signs are stable. Blood pressure is 114/69, pulse rate 98, temperature 98.1. HEENT examination unremarkable. Conjunctivae pink. Sclerae are deeply icteric. Oral cavity no lesions. NECK: No JVD or lymph node enlargement. CHEST: Clear to auscultation. HEART: Regular rate and rhythm. ABDOMEN: Soft. It was non-tender, non-distended. Liver was palpable 2 cm below the right costal margin. EXTREMITIES: No pedal edema. SKIN: No rashes. NEUROLOGIC: Alert and oriented x3. No focal deficits. LABS: Labs from today show WBC 16.5, hemoglobin 11.3, platelets 177. INR is 2. T-bilirubin is 26.5, AST 114, ALT 106, alkaline phosphatase 155. INR is 2. IMPRESSION: 1. Acute alcoholic hepatitis, possibly an underlying chronic liver disease/possible liver cirrhosis. Bilirubin has slightly improved today compared to yesterday, which was 32. Today bilirubin is 26.5. 2. Elevated liver function tests secondary to acute alcoholic hepatitis. 3. History of heavy alcohol abuse. Presently undergoing rehab therapy at [facility]. 4. Coagulopathy secondary to chronic underlying liver disease. RECOMMENDATIONS: 1. Monitor LFTs closely. 2. Abstinence from alcohol. 3. Continue with low-fat diet. 4. Patient is being considered to be discharged to rehab facility today. I agree with the plan. However, I do recommend that LFTs be monitored almost 3 or 4 times a week, and if there is any significant deterioration in his overall physical condition or if he develops any complications with altered mental status, abdominal distention or GI bleed, he was advised to return to the hospital immediately. The patient appears to understand. Thank you for this consultation. ADIEL / BROWN: [id number] /
--- NOTE | 2020-02-12 11:46 | CDI ---
Documentation Clarification Form Date: 02/12/20 From: Cindy Centeno Phone: If you have a question about this query, please contact Rosalva Valentin, Dor[employer] Operator at [phone] between 8am and 5pm. Admit Date: 02/08/20 Discharge Date:02/10/20 Patient Name: Flakito Shaw Visit Number: [id number] ATTENTION: The Clinical Documentation Specialists (CDI) and [facility] Coding Staff appreciate your assistance in clarifying documentation. Please respond to the clarification below the line at the bottom and electronically sign. The CDI & [facility] Coding staff will review the response and follow-up if needed. Please note: Queries are made part of the Legal Health Record. If you have any questions, please contact the author of this message via ITS. Dear Dr. Zeng The patient presented with the following: hyperbilirubinemia and acute alcoholic hepatitis. You documented cholestasis in your consult note and 02/[address] Montaño documented that the liver ultrasound confirmed ascites and multiple gallstones within the gallbladder. History/Risk Factors: Alcohol dependence, alcoholic hepatitis, jaundice, cirrhosis Clinical Indicators: Elevated bilirubin Lab findings: Total bilirubin 27.3 Radiology findings: Liver ultrasound - hepatomegaly and underlying hepatocellular disease with small to moderate amount of diffuse abdominal ascites greatest in the right greater than left lower quadrant. Nonmobile gallstone in gallbladder neck. No obvious dilatation. Vital Signs: T. 99.1, P. 89, R. 18, BP 128/80 Treatment: Consults: In your professional opinion, can you please clarify? 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
== END 2020-02-10 16:52 | disposition home or self-care (01) | DRG 432 ==
LOC: EC 21:20 → 5NMEDONC 02-08 00:52
PROVIDERS: ADMIT Internal Medicine; ATTEND Internal Medicine
DX: K70.11 Alcoholic hepatitis with ascites (principal); K83.1 Obstruction of bile duct; D68.9 Coagulation defect, unspecified; E87.1 Hypo-osmolality and hyponatremia; K90.9 Intestinal malabsorption, unspecified; K70.40 Alcoholic hepatic failure without coma; K70.31 Alcoholic cirrhosis of liver with ascites; D64.9 Anemia, unspecified; K80.20 Calculus of gallbladder without cholecystitis without obstruction; F10.20 Alcohol dependence, uncomplicated; D72.829 Elevated white blood cell count, unspecified; F17.200 Nicotine dependence, unspecified, uncomplicated; R94.31 Abnormal electrocardiogram [ECG] [EKG]; E87.6 Hypokalemia; T38.0X5A Adverse effect of glucocorticoids and synthetic analogues, initial encounter; Z79.899 Other long term (current) drug therapy; Z87.11 Personal history of peptic ulcer disease; Z71.41 Alcohol abuse counseling and surveillance of alcoholic; Z83.3 Family history of diabetes mellitus
CPT/HCPCS: 36415; 71046; 76705; 80053; 80074; 81001; 82103; 82105; 82140; 82150; 82390; 82728; 83516; 83540; 83550; 83690; 83735; 83880; 84132; 84165; 84466; 84484; 85025; 85027; 85610; 86038; 86376; 93005; 99285